=== PATIENT | male | born 1955 | race Caucasian/White ===

== ENCOUNTER 2016-07-18 20:05 | Emergency (ER) | payer OTHER ==
[~2016-07-18] VITALS: Ht 182.9 cm; Wt 79.4 kg
--- NOTE | 2016-07-18 20:16 | ED CARDIAC/CP/PALPITATIONS ---
History of Present Illness General Chief Complaint: General Adult Stated Complaint: HEART RATE IN 160'S Source: patient, family Exam Limitations: no limitations Vital Signs & Intake/Output Vital Signs & Intake/Output Vital Signs Date Time Temp Pulse Resp B/P Pulse O2 O2 Flow FiO2 Ox Delivery Rate 07/18 2212 98.4 84 18 133/72 99 Room Air Room Air 07/18 2142 97.5 84 18 133/74 07/18 214 97.5 84 18 133/74 07/18 2037 98.5 82 18 124/68 100 Room Air Room Air 07/19 2019 98.1 155 14 145/74 100 Room Air ED Intake and Output 07/19 0000 07/18 1200 Intake Total 1000 Output Total Balance 1000 Intake, IV 1000 Patient 175 lb Weight Allergies Coded Allergies: No Known Allergies (07/18/16) Reconcile Medications Cholecalciferol (Vitamin D3) (Vitamin D) (Unknown Strength) CAPSULE (Unknown Dose) PO DAILY SUPPLEMENT (Reported) Diltiazem HCl (Diltiazem 24HR ER) 240 MG CAP.ER.24H 1 CAP PO BID HEART/BP ( Reported) Losartan (Cozaar) 100 MG TABLET 1 TAB PO DAILY BP (Reported) [place]-3/Dha/Epa/Fish Oil (Fish Oil 1,000 MG Softgel) (Unknown Strength) CAPSULE (Unknown Dose) PO DAILY SUPPLEMENT (Reported) Triage Nurses Notes Reviewed? yes Onset: Abrupt Duration: hour(s): (2) Timing: single episode today Quality/Severity: mild Radiation: no radiation Activities at Onset: rest Associated Symptoms: PALPITATIONS HPI: 61 year old male with h/o HTN and cardiomyopathy who presents to the ER with chief complaint of palpitations that began at home 2 hrs ago. He states he was not doing anything when it started. Denies chest pain. No chest pain or lightheadedness. Past History Travel History Traveled to [place] past 21 day No Medical History Any Pertinent Medical History? see below for history Cardiovascular: hypertension, CARDIOMYOPATHY Surgical History Surgical History: LOBECTOMY CHILD SECONDARY TO BRONCHIAL INFECTION Psychosocial History Tobacco Use: Never used ETOH Use: denies use Family History Hx Contributory? No Review of Systems Review of Systems Constitutional: Denies: chills, fever. EENTM: Reports: no symptoms. Respiratory: Denies: cough, short of breath. Cardiovascular: Reports: palpitations. Denies: chest pain. GI: Denies: abdominal pain. Genitourinary: Reports: no symptoms. Musculoskeletal: Reports: no symptoms. Skin: Reports: no symptoms. Neurological/Psychological: Reports: no symptoms. Hematologic/Endocrine: Reports: no symptoms. Immunologic/Allergic: Reports: no symptoms. All Other Systems: Reviewed and Negative Physical Exam Physical Exam General Appearance: well developed/nourished, alert, awake, mild distress Head: atraumatic, normal appearance Eyes: Bilateral: normal appearance, PERRL, EOMI. Ears, Nose, Throat: normal pharynx, hearing grossly normal Neck: normal inspection, supple, full range of motion Respiratory: normal breath sounds, chest non-tender, no respiratory distress Cardiovascular: tachycardia Peripheral Pulses: 2+ radial (R), 2+ radial (L) Gastrointestinal: normal bowel sounds, soft, non-tender Extremities: normal inspection, normal capillary refill, normal range of motion, no edema Neurologic/Psych: no motor/sensory deficits, awake, alert, oriented x 3, normal gait Skin: intact, normal color, warm/dry Core Measures ACS in differential dx? Yes ASA ordered for poss ACS? No-ACS ruled out Severe Sepsis Present: No Septic Shock Present: No Progress Differential Diagnosis: AMI, atrial fibrillation, hyperthyroid, PSVT, PVCs/PACs, unstable angina, WPW syndrome, ATRIAL FIB/FLUTTER Plan of Care: Orders Procedure Date/time Status EKG 07/19 2039 Active THYROID STIMULATING HORMONE 07/18 2032 Complete TROPONIN LEVEL 07/18 2032 Complete PARTIAL THROMBOPLASTIN TIME 07/18 2032 Complete PROTHROMBIN TIME 07/18 2032 Complete FREE T4 07/18 2032 Complete COMPREHENSIVE METABOLIC PANEL 07/18 2032 Complete CBC WITHOUT DIFFERENTIAL 07/18 2032 Complete EKG 07/18 2005 Active Laboratory Tests 07/18/162034: Anion Gap 15, Estimated GFR > 60, BUN/Creatinine Ratio 35.0 H, Glucose 130 H, Calcium 9.6, Total Bilirubin 0.9, AST 25, ALT 47, Alkaline Phosphatase 74, Troponin I 0.02, Total Protein 7.3, Albumin 4.6, Globulin 2.7, Albumin/Globulin Ratio 1.7, TSH 6.870 H, Free T4 0.88, PT 10.0, INR 0.95, APTT 31, CBC w Diff NO MAN DIFF REQ, RBC 5.10, MCV 89.9, MCH 30.0, RDW 12.7, MPV 7.4, Gran % 59.4, Lymphocytes % 30.3, Monocytes % 8.2, Eosinophils % 1.5, Basophils % 0.6, Absolute Granulocytes 4.7, Absolute Lymphocytes 2.4, Absolute Monocytes 0.6, Absolute Eosinophils 0.1, Absolute Basophils 0, PUBS MCHC 33.3 No response to vagal maneuvers. IV adenosine administered without effect. IV Lopressor 5 mg given. Patient converted after a brief sinus upon to normal sinus rhythm. No evidence of A. fib or a flutter on the monitor. 9:39 PM Patient maintains in normal sinus rhythm, still asymptomatic. Labs are within normal lives. Dr. Duong cardiology paged. 9:47 PM D/W SCALPING MACHINE OPERATOR SUSTAINABILITY MANAGER DR RODRIGUEZ, INFORMED OF PATIENT RESULTS. WILL FOLLOW UP WITH DR DUONG IN THE OFFICE THIS WEEK. NEEDS OUTPATIENT EP SETUP WHICH SHE WILL ARRANGE.9:39 PM Patient maintains in normal sinus rhythm, still asymptomatic. Labs are within normal lives. Dr. Duong cardiology paged. 9:47 PM D/W SCALPING MACHINE OPERATOR SUSTAINABILITY MANAGER DR RODRIGUEZ, INFORMED OF PATIENT RESULTS. WILL FOLLOW UP WITH DR DUONG IN THE OFFICE THIS WEEK. NEEDS OUTPATIENT EP SETUP WHICH SHE WILL ARRANGE. (CORBIN LUNA,ROYAL) Initial ED EKG: SVT Repeat EKG: changed (NSR, 1ST DEGREE AVB, RBBB) Rhythm Strip: normal sinus rhythm, SVT Departure Departure Time of Disposition: 2147 Disposition: HOME OR SELF CARE Condition: Stable Clinical Impression Primary Impression: SVT (supraventricular tachycardia) Referrals: CARLENE LUNA,KATHERINE Pena Additional Instructions: FOLLOW UP WITH DR DUONG IN THE OFFICE. CALL TOMORROW MORNING TO SEE IF THEY WANT TO SEE YOU IN THE OFFICE EARLIER THAN SUNDAY. RETURN TO THE ER FOR ANY CHANGING OR WORSENING SYMPTOMS. Departure Forms: Customer Survey General Discharge Information Critical Care Note Critical Care Note Critical Care Time: 30-74 min
[2016-07-18 20:43] LABS: ABSOLUTE BASOPHIL COUNT 0 /CUMM (0.0-0.2); ABSOLUTE EOSINOPHIL COUNT 0.1 /CUMM (0.0-0.7); ABSOLUTE GRANULOCYTE CT 4.7 /CUMM (1.4-6.5); ABSOLUTE LYMPH COUNT 2.4 /CUMM (1.2-3.4); ABSOLUTE MONOCYTE COUNT 0.6 /CUMM (0.10-0.60); BASOPHIL % 0.6 % (0.0-2.0); EOSINOPHIL % 1.5 % (0-5); GRANULOCYTE % 59.4 % (42.2-75.2); HEMATOCRIT 45.9 % (42-52); MEAN CORPUSCULAR HGB CONC 33.3 G/DL (33.0-37.0); MEAN CORPUSCULAR VOLUME 89.9 FL (80.0-94.0); MEAN PLATELET VOLUME 7.4 FL (7.4-10.4); PLATELET COUNT 230 /CUMM (130-400); RBC DISTRIBUTION WIDTH 12.7 % (11.5-14.5); WHITE BLOOD CELL COUNT 7.9 /CUMM (4.8-10.8)
[2016-07-18 20:54] LABS: PTT 31 SEC (25-37)
[2016-07-18] MEDS ORDERED: VITAMIN D2000 UNIT PO (21:10)
[2016-07-18] MEDS ORDERED: DILTIAZEM 24HR240 MG PO (21:10)
[2016-07-18] MEDS ORDERED: COZAAR100 M1 PO (21:10)
[2016-07-18] MEDS ORDERED: FISH OIL 1,0001 EAC2 PO (21:11)
[2016-07-18 22:13] VITALS: BP 133/72
== END 2016-07-18 22:15 ==
LOC: ERH 20:05
PROVIDERS: Emergency Medicine
DX: I47.1 Supraventricular tachycardia (principal)
CPT/HCPCS: 93005; 93010; 96374; 96375; 99291; J0153